=== PATIENT | male | born 1975 | race Caucasian/White ===

== ENCOUNTER 2021-07-04 21:33 | Observation (INO) ==
[2021-07-04] MEDS ORDERED: dilTIAZem HCl 5 MG/ML 5 ML VIAL IV STA ×2 (21:55→22:20)
[2021-07-04 22:10] LABS: Basophils # (auto) 0.03 K/uL (0-0.2); Basophils % (auto) 0.2 %; Eosinophils # (auto) 0.34 K/uL (0-0.5); Eosinophils % (auto) 2.6 %; Immature Granulocytes # (auto) 0.06 K/uL (0.00-0.02); Immature Granulocytes % (auto) 0.5 %; Lymphocytes # (auto) 2.34 K/uL (1.2-3.4); Lymphocytes % (auto) 17.6 %; Mean Corpuscular Hemoglobin 30.9 pg (25-34); Mean Corpuscular Hgb Conc 34.1 g/dL (32-36); Mean Corpuscular Volume 90.5 fL (80-100); Mean Platelet Volume 9.1 fL (7.4-10.4); Monocytes # (auto) 0.98 K/uL (0.11-0.59); Monocytes % (auto) 7.4 %; Neutrophils # (auto) 9.51 K/uL (1.4-6.5); Neutrophils % (auto) 71.7 %; Platelet Count 339 K/uL (130-400); RDW Standard Deviation 46.1 fL (36.4-46.3); Red Blood Count 4.86 M/uL (4.7-6.1); White Blood Count 13.26 K/uL (4.8-10.8)
[2021-07-04 22:20] LABS: D Dimer 460 ug/L FEU (0-500); Partial Thromboplastin Ratio 0.9; Partial Thromboplastin Time 24.5 Seconds (21.0-31.0); Prothrombin Time 11.1 Seconds (9.0-12.0)
[2021-07-04] MEDS ORDERED: STAT IV Infusion **Titration per Protocol STA (22:20)
[2021-07-04 22:27] LABS: Albumin Globulin Ratio 1.6 (0.9-2); Albumin Level 4.6 gm/dl (3.4-5.0); Bilirubin,Total 0.3 mg/dl (0.2-1.0); Calcium 9.4 mg/dl (8.5-10.1); Creatinine Clr Calc Pharmacy 100.6 ml/min; Est GFR (African American) 87.1 ml/min; Est GFR (Non-African American) 75.1 ml/min; Globulin 2.9 gm/dl (2.5-4.0); Magnesium 1.7 mg/dl (1.7-2.4); Potassium 3.9 mmol/L (3.5-5.1); Total Protein 7.5 gm/dl (6.0-8.3)
[2021-07-04] MEDS ORDERED: dilTIAZem HCL 125 MG in DEXTROSE 5% 100 ML IV SCH (22:30)
[2021-07-04 22:37] LABS: Troponin I High Sensitivity 53.7 pg/ml (0-20)
--- NOTE | 2021-07-04 22:42 | Emergency Department Note ---
History of Present Illness General Chief complaint: Tachycardia Stated complaint: Possible overdose Time Seen by Provider: 07/04/21 21:55 History of Present Illness 45-year-old male presents to the ED with a chief complaint of possible overdose. The patient states that he fell asleep while he was working under a car that was not running. EMS was called because the patient was not responding. Narcan was reportedly given and the patient woke up. He was transported here by EMS. He was found to be in A. fib with RVR. Denies recent alcohol use. Denies drug use. Reports a history of hypertension but does not take medication for it. He does not see a doctor regularly. The patient states that it feels like his heart might be going a little fast but he states that he really does not know if it is irregular or fast despite the fact that it was going 140 bpm. Denies any complaints at this time. Past Med/Surg History Medical History (Updated 07/04/21 @ 22:43 by Ross Louis DO) Hypertension Social History Tobacco Type: Cigarettes Feels Safe at Home: Yes Review of Systems A total of 10 systems reviewed and were otherwise negative Physical Exam Vital Signs Vital Signs - 24 hr 07/04/21 21:22 07/04/21 22:11 Temperature 37.3 C Temperature Source Oral Pulse Rate 188 H Pulse Rate [Right] 126 H Pulse Rhythm Irregular Pulse Rhythm [Right] Irregular Pulse Strength Normal Pulse Strength [Right] Normal Respiratory Rate 16 16 Respiratory Effort / Characteristics Non-Labored Spontaneous Non-Labored Spontaneous Respiratory Depth Normal Normal Blood Pressure 180/134 H Blood Pressure [Right Arm] 139/86 Blood Pressure Mean 149 Blood Pressure Mean [Right Arm] 103 Blood Pressure Position [Right Arm] Lying Pulse Oximetry 93 94 Oxygen Delivery Method Nasal Cannula Nasal Cannula Oxygen Flow Rate 4 4 Sepsis Recent Fever Within 48 Hours No Sepsis New/Unexplained Change in Mental Status N/A Sepsis Action Taken by Nursing No Action Required CONSTITUTIONAL/VITAL SIGNS: Reviewed / noted above. GENERAL: Non-toxic in appearance. INTEGUMENTARY: Warm, dry, and [place]. HEAD: Normocephalic. EYES: without scleral icterus or trauma. ENT/OROPHARYNX: clear and moist. LYMPHADENOPATHY/NECK: Is supple without lymphadenopathy or meningismus. RESPIRATORY: Clear to auscultation bilaterally. No increased work of breathing. CARDIOVASCULAR: Regular rate and rhythm. GI/ABDOMEN: Soft and nontender. No organomegaly or pulsatile mass. EXTREMITIES: Warm and well perfused. BACK: No CVA tenderness. NEUROLOGICAL: Intact without focal deficits. PSYCHIATRIC: normal affect. MUSCULOSKELETAL: Normally developed with good muscle tone. TRIAGE NURSING DOCUMENTATION REVIEWED. Course Administered Medications Discontinued Medications Diltiazem HCl (Diltiazem Hcl 5 Mg/Ml 5 Ml Vial) 25 mg IV NOW STA Stop: 07/04/21 21:56 Last Admin: 07/04/21 22:05 Dose: 25 mg Documented by: [id number] Cosigned by: [id number] Diltiazem HCl (Diltiazem Hcl 5 Mg/Ml 5 Ml Vial) 30 mg IV NOW STA Stop: 07/04/21 22:21 Last Admin: 07/04/21 22:29 Dose: 30 mg Documented by: [id number] Cosigned by: [id number] Critical Care Time Critical Care Time: Yes Total Critical Care Time: 30 I have personally spent 30 minutes of critical care time in the direct management of this patient. This includes bedside care, interpretation of diagnostic studies, and testing, discussion with consultants, patient, and family members, and other required patient management activities. This 30 minutes is in excess of all separately billable procedures. Medical Decision Making Differential Diagnosis The differential that was considered includes acute myocardial infarction, acute coronary syndrome, myocarditis, pericarditis, pericardial effusions /tamponade, esophageal perforation, thoracic aortic dissection, pulmonary embolism, pneumonia, pneumothorax, pancreatitis, shingles, acute cholecystitis, perforated abdominal viscus. Medical Records Attestation: I reviewed the patient's medical records. Home Medications Current Medication List: was personally reviewed by me Laboratory Data Attestation: I reviewed the patient's lab results. Result diagrams: 07/04/21 21:56 07/04/21 21:56 Lab Results 07/04/21 07/04/21 07/04/21 Range/Units 21:56 21:56 21:56 WBC 13.26 H (4.8-10.8) K/uL RBC 4.86 (4.7-6.1) M/uL Hgb 15.0 (14.0-18.0) g/dL Hct 44.0 (42-52) % MCV 90.5 (80-100) fL MCH 30.9 (25-34) pg MCHC 34.1 (32-36) g/dL RDW Std Deviation 46.1 (36.4-46.3) fL RDW Coeff of Jorge 14.0 (11.5-14.5) % Plt Count 339 (130-400) K/uL MPV 9.1 (7.4-10.4) fL Immature Gran % (Auto) 0.5 % Neut % (Auto) 71.7 % Lymph % (Auto) 17.6 % Tompkins % (Auto) 7.4 % Eos % (Auto) 2.6 % Baso % (Auto) 0.2 % Neut # (Auto) 9.51 H (1.4-6.5) K/uL Lymph # (Auto) 2.34 (1.2-3.4) K/uL Tompkins # (Auto) 0.98 H (0.11-0.59) K/uL Eos # (Auto) 0.34 (0-0.5) K/uL Baso # (Auto) 0.03 (0-0.2) K/uL Immature Gran # (Auto) 0.06 H (0.00-0.02) K/uL PT 11.1 (9.0-12.0) Seconds INR 1.0 (0.9-1.1) APTT 24.5 (21.0-31.0) Seconds PTT Ratio 0.9 D-Dimer 460 (0-500) ug/L FEU Sodium 138 (136-145) mmol/L Potassium 3.9 (3.5-5.1) mmol/L Chloride 102 (98-107) mmol/L Carbon Dioxide 25 (21-32) mmol/L Anion Gap 11 (3-11) BUN 13 (6-23) mg/dl Creatinine 1.18 (0.6-1.4) mg/dl Est Cr Clr Drug Dosing 100.6 ml/min Est GFR ( Amer) 87.1 ml/min Est GFR (Non-Af Amer) 75.1 ml/min BUN/Creatinine Ratio 11.0 (10-20) Glucose 86 (70-99(Fasting)) mg/dl Calcium 9.4 (8.5-10.1) mg/dl Magnesium 1.7 (1.7-2.4) mg/dl Total Bilirubin 0.3 (0.2-1.0) mg/dl AST 16 (13-39) U/L ALT 14 (7-52) U/L Alkaline Phosphatase 87 (34-104) U/L Troponin I High Sens 53.7 H* (0-20) pg/ml Total Protein 7.5 (6.0-8.3) gm/dl Albumin 4.6 (3.4-5.0) gm/dl Globulin 2.9 (2.5-4.0) gm/dl Albumin/Globulin Ratio 1.6 (0.9-2) TSH (0.300-4.500) uIu/ml 07/04/21 Range/Units 21:56 WBC (4.8-10.8) K/uL RBC (4.7-6.1) M/uL Hgb (14.0-18.0) g/dL Hct (42-52) % MCV (80-100) fL MCH (25-34) pg MCHC (32-36) g/dL RDW Std Deviation (36.4-46.3) fL RDW Coeff of Jorge (11.5-14.5) % Plt Count (130-400) K/uL MPV (7.4-10.4) fL Immature Gran % (Auto) % Neut % (Auto) % Lymph % (Auto) % Tompkins % (Auto) % Eos % (Auto) % Baso % (Auto) % Neut # (Auto) (1.4-6.5) K/uL Lymph # (Auto) (1.2-3.4) K/uL Tom[place]kins # (Auto) (0.11-0.59) K/uL Eos # (Auto) (0-0.5) K/uL Baso # (Auto) (0-0.2) K/uL Immature Gran # (Auto) (0.00-0.02) K/uL PT (9.0-12.0) Seconds INR (0.9-1.1) APTT (21.0-31.0) Seconds PTT Ratio D-Dimer (0-500) ug/L FEU Sodium (136-145) mmol/L Potassium (3.5-5.1) mmol/L Chloride (98-107) mmol/L Carbon Dioxide (21-32) mmol/L Anion Gap (3-11) BUN (6-23) mg/dl Creatinine (0.6-1.4) mg/dl Est Cr Clr Drug Dosing ml/min Est GFR ( Amer) ml/min Est GFR (Non-Af Amer) ml/min BUN/Creatinine Ratio (10-20) Glucose (70-99(Fasting)) mg/dl Calcium (8.5-10.1) mg/dl Magnesium (1.7-2.4) mg/dl Total Bilirubin (0.2-1.0) mg/dl AST (13-39) U/L ALT (7-52) U/L Alkaline Phosphatase (34-104) U/L Troponin I High Sens (0-20) pg/ml Total Protein (6.0-8.3) gm/dl Albumin (3.4-5.0) gm/dl Globulin (2.5-4.0) gm/dl Albumin/Globulin Ratio (0.9-2) TSH 2.805 (0.300-4.500) uIu/ml Imaging Data My Impression: Chest x-ray: Per my interpretation there is no acute disease. No pneumothorax or pneumonia. ECG Data Attestation: I personally reviewed and interpreted this ECG as follows: Additional Comments: Twelve-lead EKG: Per my interpretation shows A. fib at a rate of 170. No ST elevation. No PVCs. Normal QTC. Twelve-lead EKG #2: Per my interpretation shows a normal sinus rhythm at a rate of 90. No ST elevation. No PVCs. Normal QTC. MDM Narrative Patient presents with possible drug overdose. He reportedly was sleeping under someone's car while working on it. Per EMS he was unresponsive and responded to Narcan. He was found to be in A. fib with RVR. Chest x-ray was clear. EKG shows A. fib with a rate of 170. CBC shows an elevation of the white blood cell count. Chemistry panel was unremarkable. D-dimer was negative. A troponin was elevated at 53. TSH was normal. The patient was given IV Cardizem bolus times 2. After the second bolus, the patient's A. fib converted into a normal sinus rhythm. The twelve-lead EKG shows normal sinus rhythm at a rate of 90. No ST elevations. The patient will be seen by the hospitalist for further evaluation and care. Impression & Plan Atrial fibrillation with RVR, Elevated troponin Discharge Plan Visit Data Chief Complaint: Tachycardia Stated Complaint: Possible overdose ED Provider: Ross Louis Discharge Problem: Atrial fibrillation with RVR, Elevated troponin Patient Disposition: Admitted As Inpatient Forms Stand Alone Forms: [facility], [facility] Emergency Department, Important Visit Information Referrals Referrals: PCP,NO [Primary Care Provider] -
--- NOTE | 2021-07-04 23:09 | History & Physical Report ---
Date of Service July 04, 2021 Assessment & Plan (1) Atrial fibrillation with RVR: Plan: Thai Nuñez is a 45yo male with PMHx of HTN (no home meds) who was transported to [facility] ED on 07/04 by EMS for concern of possible overdose and for tachycardia - found to be in a-fib with RVR on arrival in ED. Atrial Fibrillation with Rapid Ventricular Response, resolved Reverted to NSR at ~80bpm after total of Diltiazem 55mg IV in the ED. Patient does report previous episodes of palpitations. Unclear cause of a-fib RVR although given that patient was initially unresponsive in the field and woke up after Narcan, high suspicion for overdose possibly due to opiate. Patient vehemently denies drug use. - hold on further rate control for now as patient is in NSR - please contact provider for sustained HR >110 - CHADS-VASc score of 1 - will hold on anti-coagulation for now; defer to day team vs PCP on further discussion regarding this - UDS ordered and pending Elevated Troponin hsTroponin 53.7 at ~10pm. No chest pain or ST/T changes on EKG. Suspect demand ischemia in context of a-fib RVR. - trend now and in AM - PRN EKG + Nitro for chest pain HTN Reportedly has h/o this but not treated with medications. BP 180/134 on arrival but improved to 139/86 s/p Diltiazem. - trend BP closely while admitted - defer to day team for decision about chronic anti-hypertensives FEN/GI: regular diet DVT Prophylaxis: Lovenox Code Status: full code Disposition: med/tele (2) Elevated troponin: (3) Hypertension: History of Present Illness Chief Complaint: tachycardia Primary Care Provider: NO PCP Thai Nuñez is a 45yo male with PMHx of HTN (no home meds) who was transported to [facility] ED on 07/04 by EMS for concern of possible overdose and for tachycardia. Patient reports that he fell asleep while working under a car that was not running. EMS was called because patient was not responding; Narcan was reportedly given and patient woke up. He reports that when he woke up his heart rate felt fast but denies chest pain, headache, SOB, or any other symptoms. Does report that he has had palpitations/tachycardia several times in the past but usually it resolved within 5-10 minutes without intervention and he has never had HR measured before or had EKG before. Patient denies alcohol use or drug use. Does report 1pack per day smoking x15 years - current smoker. Presented to ED in a-fib with RVR at 188bpm. BP was also elevated at 180/134 and patient was satting 93-94% on 4L/min NC. Labs significant for troponin 53.7. WBC 13.26 (neutrophilic predominance and mild L shift). D-dimer negative. TSH 2.805. CXR without acute cardiopulmonary process. Patient was given Diltiazem 25mg IV x1 followed by 30mg IV x1 - subsequently converted to NSR at ~80bpm and BP improved to 139/86. Patient was also weaned to room air and is breathing comfortably. Allergies Allergy/AdvReac Type Severity Reaction Status Date / Time No Known Allergies Allergy Unverified 07/05/21 01:17 Home Medications Medication Instructions Recorded Confirmed Type Heart Burn Pill 1 tab PO .LAST NIGHT 07/05/21 07/05/21 History diltiazem HCl 120 mg 120 mg PO DAILY #30 cap 07/05/21 Rx capsule,extended release 24 hr ibuprofen 200 mg tablet 400 mg PO Q6H PRN 07/05/21 07/05/21 History Past Med/Surg History Medical History (Updated 07/05/21 @ 13:59 by Aman Thorne MD) Hypertension Social History Smoking Status: Current every day smoker Tobacco Type: Cigarettes Cigarettes Per Day: 20; Second Hand Exposure: No; Hx Alcohol Use: No Hx Substance Use: No (Patient states he does not use any substances) Preferred Language: Bengali Communication Ability: Effective Director [employer] Required: No Beliefs That Will Affect Care: None Current Living Situation: Alone Feels Safe at Home: Yes Assistive Devices: None Review of Systems Review of Systems: All systems reviewed & are unremarkable except as noted in HPI & below Physical Exam Physical Exam: General: A&Ox3. NAD. Cooperative. HEENT: Atraumatic, normocephalic. Pulm: CTAB A&P. -wheezes, -rales, -rhonchi. Symmetrical chest rise. No increase work of breathing. No respiratory distress. Cardiac: RRR, -mrg. Radial pulses intact and symmetrical. Abdominal: soft, non-tender, non-distended, BS x 4 Skin: warm, dry, no rash Results & Data Results & Data ([facility]) Vital Signs (Past 12 Hours) Vital Signs Temp Pulse Pulse Resp BP BP Pulse Ox 07/04/21 22:11 126 H 16 139/86 94 07/04/21 21:22 37.3 C 188 H 16 180/134 H 93 Supervising Physician Co-Signing Physician Notes Attending addendum: I have physically seen this patient, have supervised the medical residents activities, and agree with the H&P unless as otherwise noted. Assessment and Plan: Unresponsive episode- Reportedly woke up after Narcan Urine drug screen ordered and pending Patient denies use of narcotics Will be admitted to monitored bed monitor for further arrhythmias Atrial fibrillation with RVR/increased troponin/hypertension- The patient will be admitted to telemetry for serial cardiac enzymes, serial EKG's, cardiac rhythm monitoring and a 2-D echocardiogram with Dopplers. Troponin 53.7 Has converted to normal sinus rhythm in the emergency department atus post diltiazem 25 mg IV then 30 mg IV pushes Consult cardiology Remaining orders and notations as noted Resident Activity Tracking Resident Involvement: Resident Care Provided Care Provided: Adult Hospital Medicine
[2021-07-05] MEDS ORDERED: ACETAMINOPHEN 325 MG TAB PO PRN (01:53)
[2021-07-05] MEDS ORDERED: NITROGLYCERIN SL 0.4 MG/TAB TAB SL PRN (01:53)
[2021-07-05] MEDS ORDERED: Heparin IV Adult Wt-Based Standard WITH Bolus Protocol IV SCH (03:35)
[2021-07-05] MEDS ORDERED: HEPARIN SODIUM/DEXTROSE 25,000 UNITS/500 ML BAG IV SCH (04:00)
[2021-07-05] MEDS ORDERED: HEPARIN SOD (PORCINE) 1000 UNIT/ML IV ONE (04:15)
[2021-07-05 04:36] LABS: Hematocrit (blood only) 41.5 % (42-52); Hemoglobin 13.9 g/dL (14.0-18.0); Mean Corpuscular Hemoglobin 30.5 pg (25-34); Mean Corpuscular Volume 91.2 fL (80-100); Mean Platelet Volume 9.1 fL (7.4-10.4); Platelet Count 321 K/uL (130-400); RDW Coefficient of Variation 14.1 % (11.5-14.5); RDW Standard Deviation 46.9 fL (36.4-46.3); Red Blood Count 4.55 M/uL (4.7-6.1); White Blood Count 10.64 K/uL (4.8-10.8)
[2021-07-05 04:39] LABS: Mean Corpuscular Hgb Conc 33.5 g/dL (32-36)
[2021-07-05 04:46] LABS: INR 1.1 (0.9-1.1); Partial Thromboplastin Time 26.2 Seconds (21.0-31.0); Prothrombin Time 11.2 Seconds (9.0-12.0)
[2021-07-05 04:53] LABS: Basophils # (auto) 0.03 K/uL (0-0.2); Basophils % (auto) 0.3 %; Eosinophils # (auto) 0.32 K/uL (0-0.5); Immature Granulocytes # (auto) 0.02 K/uL (0.00-0.02); Immature Granulocytes % (auto) 0.2 %; Lymphocytes # (auto) 3.84 K/uL (1.2-3.4); Lymphocytes % (auto) 36.1 %; Monocytes # (auto) 1.31 K/uL (0.11-0.59); Monocytes % (auto) 12.3 %; Neutrophils # (auto) 5.12 K/uL (1.4-6.5); Neutrophils % (auto) 48.1 %
[2021-07-05 04:58] LABS: BUN Creatinine Ratio 12.1 (10-20); Calcium 8.8 mg/dl (8.5-10.1); Creatinine Clr Calc Pharmacy 118.9 ml/min; Est GFR (African American) 107.7 ml/min; Est GFR (Non-African American) 92.9 ml/min; Magnesium 1.7 mg/dl (1.7-2.4); Potassium 3.9 mmol/L (3.5-5.1)
[2021-07-05] MEDS ORDERED: METOPROLOL TARTRATE 25 MG TAB PO STA (07:31)
--- NOTE | 2021-07-05 07:37 | Hospitalist Progress Note ---
Date of Service July 05, 2021 Assessment & Plan (1) Atrial fibrillation with RVR: Plan: Thai Nuñez is a 45yo male with PMHx of HTN (no home meds) who was transported to [facility] ED on 07/04 by EMS for concern of possible overdose and for tachycardia - found to be in a-fib with RVR on arrival in ED. Atrial Fibrillation with Rapid Ventricular Response, resolved Reverted to NSR at ~80bpm after total of Diltiazem 55mg IV in the ED. Patient does report previous episodes of palpitations. Unclear cause of a-fib RVR although given that patient was initially unresponsive in the field and woke up after Narcan, high suspicion for overdose possibly due to opiate. Patient vehemently denies drug use. - hold on further rate control for now as patient is in NSR - please contact provider for sustained HR >110 - CHADS-VASc score of 1 - will hold on anti-coagulation for now; defer to day team vs PCP on further discussion regarding this - UDS ordered and pending Elevated Troponin hsTroponin 53.7 at ~10pm. No chest pain or ST/T changes on EKG. Suspect demand ischemia in context of a-fib RVR. - trend now and in AM - PRN EKG + Nitro for chest pain HTN Reportedly has h/o this but not treated with medications. BP 180/134 on arrival but improved to 139/86 s/p Diltiazem. - trend BP closely while admitted - defer to day team for decision about chronic anti-hypertensives FEN/GI: regular diet DVT Prophylaxis: Lovenox Code Status: full code Disposition: med/tele (2) Elevated troponin: (3) Hypertension: Admission and Anticipated Discharge Date Admission Date: July 04, 2021 Subjective No complaints this AM. Denies any symptoms other than mild back pain. Per nursing, had been unable to give urine sample; awaiting utox. 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 This occurred just after standing-> crawl under cr during while he felt a few seconds of dizziness and blood rushing to head. Denies hx of syncope or seizure. Denies substance use prior. States will attempt to give urine sample. May have had hx of possible afib in past. Review of Systems Review of Systems: All systems reviewed & are unremarkable except as noted in HPI & below Physical Exam Physical Exam: General: Grossly A&O. NAD. Cooperative. Conversational. No confusion. HEENT: Atraumatic, normocephalic. EOMI Pulm: Faint coarse crackles on inspiration at bases. Faint brief exp wheezes at bases. No respiratory distress. Cardiac: RRR, -mrg. Radial pulses intact and symmetrical. Abdominal: Nontender, nondistended, soft. Neuro: Strength and sensation of extremities intact. Results & Data Results & Data ([facility]) Vital Signs (Past 12 Hours) Vital Signs Temp Pulse Pulse Resp BP BP BP 07/05/21 06:45 36.7 C 87 18 139/87 07/05/21 04:04 91 H 07/05/21 02:18 36.7 C 87 14 151/95 H 07/05/21 02:10 36.7 C 87 14 151/95 H 07/05/21 00:11 80 16 136/84 07/04/21 22:11 126 H 16 139/86 07/04/21 21:22 37.3 C 188 H 16 180/134 H Pulse Ox 07/05/21 06:45 90 07/05/21 04:04 07/05/21 02:18 95 07/05/21 02:10 95 07/05/21 00:11 92 07/04/21 22:11 94 07/04/21 21:22 93 Resident Activity Tracking Resident Involvement: Resident Care Provided Care Provided: Adult Hospital Medicine
--- NOTE | 2021-07-05 07:56 | XRay Report ---
XR chest 1V portable HISTORY: Dysrhythmia COMPARISON: None. FINDINGS: The heart is mildly enlarged. There is mild central pulmonary vascular congestion without o vert edema. No pleural effusions. No pneumothorax. Cervical spinal fusion hardware is noted. IMPRESSION: Cardiomegaly with mild congestive change. ACT 112: Negative or not required by law. Electronically signed by: Lele Leahy M.D. 07/05/2021 7:55 AM
[2021-07-05] MEDS ORDERED: ENOXAPARIN INJ 40 MG/0.4 ML SYR SQ SCH (09:00)
[2021-07-05 11:35] LABS: Partial Thromboplastin Ratio 2.1
[2021-07-05 11:40] LABS: Partial Thromboplastin Time 58.7 Seconds (21.0-31.0)
--- NOTE | 2021-07-05 12:14 | Discharge Summary ---
Date of Service July 05, 2021 Admission HPI Per Admitting Provider Thai Nuñez is a 45yo male with PMHx of HTN (no home meds) who was transported to [facility] ED on 07/04 by EMS for concern of possible overdose and for tachycardia. Patient reports that he fell asleep while working under a car that was not running. EMS was called because patient was not responding; Narcan was reportedly given and patient woke up. He reports that when he woke up his heart rate felt fast but denies chest pain, headache, SOB, or any other symptoms. Does report that he has had palpitations/tachycardia several times in the past but usually it resolved within 5-10 minutes without intervention and he has never had HR measured before or had EKG before. Patient denies alcohol use or drug use. Does report 1pack per day smoking x15 years - current smoker. Presented to ED in a-fib with RVR at 188bpm. BP was also elevated at 180/134 and patient was satting 93-94% on 4L/min NC. Labs significant for troponin 53.7. WBC 13.26 (neutrophilic predominance and mild L shift). D-dimer negative. TSH 2.805. CXR without acute cardiopulmonary process. Patient was given Diltiazem 25mg IV x1 followed by 30mg IV x1 - subsequently converted to NSR at ~80bpm and BP improved to 139/86. Patient was also weaned to room air and is breathing comfortably. Admission Exam Per Admitting Provider General: A&Ox3. NAD. Cooperative. HEENT: Atraumatic, normocephalic. Pulm: CTAB A&P. -wheezes, -rales, -rhonchi. Symmetrical chest rise. No increase work of breathing. No respiratory distress. Cardiac: RRR, -mrg. Radial pulses intact and symmetrical. Abdominal: soft, non-tender, non-distended, BS x 4 Skin: warm, dry, no rash Principal Diagnosis atrial fibrillation, syncope Discharge Exam General: Grossly A&O. NAD. Cooperative. Conversational. No confusion. HEENT: Atraumatic, normocephalic. EOMI Pulm: Faint coarse crackles on inspiration at bases. Faint brief exp wheezes at bases. No respiratory distress. Cardiac: RRR, -mrg. Radial pulses intact and symmetrical. Abdominal: Nontender, nondistended, soft. Neuro: Strength and sensation of extremities intact. Discharge Data Allergies Allergy/AdvReac Type Severity Reaction Status Date / Time No Known Allergies Allergy Unverified 07/05/21 01:17 Consultations 07/04/21 22:57 ED Decision to Admit Stat 07/05/21 03:32 Consult Cardiology Routine Ordered Studies Cardiac Enzymes 07/04/21 07/05/21 07/05/21 Range/Units 21:56 01:57 08:33 AST 16 (13-39) U/L Troponin I High Sens 53.7 H* 519.8 H* D 513.5 H* (0-20) pg/ml Coagulation 07/04/21 07/05/21 07/05/21 Range/Units 21:56 04:11 10:53 PT 11.1 11.2 (9.0-12.0) Seconds APTT 24.5 26.2 58.7 H* (21.0-31.0) Seconds CBC 07/04/21 07/05/21 Range/Units 21:56 04:11 WBC 13.26 H 10.64 (4.8-10.8) K/uL RBC 4.86 4.55 L (4.7-6.1) M/uL Hgb 15.0 13.9 L (14.0-18.0) g/dL Hct 44.0 41.5 L (42-52) % Plt Count 339 321 (130-400) K/uL Neut # (Auto) 9.51 H 5.12 (1.4-6.5) K/uL Lymph # (Auto) 2.34 3.84 H (1.2-3.4) K/uL [place] # (Auto) 0.98 H 1.31 H (0.11-0.59) K/uL Eos # (Auto) 0.34 0.32 (0-0.5) K/uL Baso # (Auto) 0.03 0.03 (0-0.2) K/uL Comprehensive Metabolic Panel 07/04/21 07/05/21 Range/Units 21:56 04:11 Sodium 138 138 (136-145) mmol/L Potassium 3.9 3.9 (3.5-5.1) mmol/L Chloride 102 104 (98-107) mmol/L Carbon Dioxide 25 29 (21-32) mmol/L BUN 13 12 (6-23) mg/dl Creatinine 1.18 0.99 (0.6-1.4) mg/dl Glucose 86 94 (70-99(Fasting)) mg/dl Calcium 9.4 8.8 (8.5-10.1) mg/dl AST 16 (13-39) U/L ALT 14 (7-52) U/L Alkaline Phosphatase 87 (34-104) U/L Total Protein 7.5 (6.0-8.3) gm/dl Albumin 4.6 (3.4-5.0) gm/dl Intake and Output 07/05/21 07/05/21 07/05/21 06:59 14:59 22:59 Intake Total 350 / 350 Output Total 450 / 450 Balance -100 / -100 Intake: Oral 350 / 350 Output: Urine 450 / 450 Other: Other Intake Source npo Weight 109 kg 109 kg Weight Measurement Method Standing Scale Patient Weight 07/06/21 06:59 Weight 109 kg Chest X-Ray 07/04/21 21:56 XR chest 1V portable HISTORY: Dysrhythmia COMPARISON: None. FINDINGS: The heart is mildly enlarged. There is mild central pulmonary vascular congestion without overt edema. No pleural effusions. No pneumothorax. Cervical spinal fusion hardware is noted. IMPRESSION: Cardiomegaly with mild congestive change. ACT 112: Negative or not required by law. Electronically signed by: Lele Leahy M.D. 07/05/2021 7:55 AM Hospital Course (1) Atrial fibrillation with RVR: Thai Nuñez is a 45yo male with PMHx of HTN (no home meds) and possible parox afib who presented after being found unresponsive in a parklot (working under a car) and was noted to be in afib rvr. Syncope -was transported to [facility] ED on 07/04 by EMS for concern of possible overdose and for tachycardia; pateient woke up after Narcan -per interview w/ patient, denies any opiate or any substance use (other than tobacco); patient describes syncopal-type episode w/ preceding dizziness and head fullness upon transfer from standing position to crawling under car for quick repair -cardiac work in the hospital was reassuring -did consider substance use as differential that patient may not be disclosing; counseled patient on concerns as would influence treatment plan (we are prescribing diltiazem for afib). - UDS pos for cocaine metabolite, confirmation test pending Atrial Fibrillation with Rapid Ventricular Response, resolved Reverted to NSR at ~80bpm after total of Diltiazem 55mg IV in the ED. Patient does report previous episodes of palpitations. Unclear cause of a-fib RVR although given that patient was initially unresponsive in the field and woke up after Narcan, high suspicion for overdose possibly due to opiate. New outpatient medication: diltiazem 120mg daily. Outpt f/u w/ cardiology in 2-4 wks, along w/ stress test (either stress ecg or stress echo) Echo w/ EF 55-60 and grade 2 diastolic dysfunction. moderate concentric LVH. - CHADS-VASc score of 1 - defer anticoagulation - outpatient f/u: sleep study Elevated hs Troponin, peaked 500s, likely 2/2 demand ischemia from tachycardia HTN Reportedly has h/o this but not treated with medications. BP 180/134 on arrival but improved to 139/86 s/p Diltiazem. F/u as outpatient to assess if chronic regimen indicated. Patient was full code this admission Does not have PCP; referral placed. (2) Elevated troponin: (3) Hypertension: (4) Paroxysmal atrial fibrillation: Total Time Total Time Spent Total Time Spent (In Minutes): <30 Discharge Plan Discharge Items Patient Disposition: Home - Self-Care Reason For Visit: TACHYCARDIA Discharge Diagnosis: atrial fibrillation, syncope Activity: Per Instructions section Non-emergency contact: Primary Care Provider Call non-emergency contact if: you have any medication questions and you have a fever Follow-up/Referrals: Gilbert Cain MD [Physician] - (f/u in office in 2-4 weeks along w/ stress test) Aman Thorne MD [Resident] - (hospital discharge follow up within 1 week ) PCP,NO [Primary Care Provider] - (see pcp referral (Aman Thorne MD at [facility])) Diet: Regular Addtl Attending Provider Instructions: You were admitted to [facility] after being found unresponsive. The workup was reassuring.You also had atrial fibrillation which is an irregular heart rhythm where the heart beats too quickly. You were treated with IV medication and your heart rhythm returned to normal. You will be prescribed a medication called diltiazem extended release 120mg once a day (start first dose this this evening; take every 24 hours) to reduce the recurrence of the atrial fibrillation. The prescription has been sent to [facility] in [place]. Please make an appointment to follow up and establish with a primary care doctor within 1 week of hospital discharge. An appointment will be requested for f/u with me at the [address] [place] [address]. If you do not hear back in a few days, call [phone] to make an appointment. Please also follow up with cardiology in 2-4 weeks for an office visit and str ess test (to check the heart's function). If you develop any new or worsening symptoms including fever, chills, sweats, chest pain, chest pressure, difficulty breathing, uncontrolled nausea/vomiting, rash, wheezing, passing out or nearly passing out, bleeding, black/bloody bowel movements, or other new or concerning symptoms please call your primary care physician, or call 911 for re-evaluation in the emergency department if you are very concerned. If you pass out again, please contact your doctor and/or visit the emergency department. Pending Studies at Discharge: No Stand-Alone Forms: My [facility], Smoking Cessation Medications and DC Order Prescriptions: New diltiazem HCl 120 mg capsule,extended release 24hr 120 mg PO DAILY Qty: 30 RF: 1 Continued ibuprofen 200 mg Tablet 400 mg PO Q6H PRN (Reason: Pain) RF: 0 Heart Burn Pill 1 tab PO .LAST NIGHT RF: 0 Discharge Orders: Discharge Order (Routine); Ordered 07/05/21 Ordered By: Aman Thorne Admission Data Admit Date/Time: 07/04/21 23:35 Attending Provider: Hardik Luciano Admit Provider: Jeff Samayoa Primary Care Provider: PCP,NO Other Providers: Carroll Smith ; Gilbert Cain Other Interventions: Discharge Summary Assessment (RN) Last Done: 07/05/21 13:13 Supervising Physician Co-Signing Physician Notes I personally examined the patient and verified all fernandez points of history and exam, discussed case, and agree with decision making with Dr Thorne feeling better and feels up to going home. discussed working dx and plans and pt expressed good understanding. answered all questions to the best of my ability vitals noted nad heent nc at mmm breathing unlabored no accessory muscles good effort skin no rashes no pallor or icterus new afib -now nsr -home on dilt -chads vasc 1 - holding off on anticoagulation for now, likely to need over time as risks accumulate -echo noted -for sleep study -cardiology and PCP f/u -stable for home Resident Activity Tracking Resident Involvement: Resident Care Provided Care Provided: Adult Hospital Medicine
--- NOTE | 2021-07-05 12:55 | XCELERA ---
[id number] \\[id number]
--- NOTE | 2021-07-05 12:55 | Cardiology Consultation ---
Date of Consultation July 05, 2021 Assessment & Plan (1) Atrial fibrillation with RVR: (2) Elevated troponin: (3) Hypertension: (4) Uncontrolled daytime somnolence: (5) Mild aortic regurgitation: Patient with unexplained uncontrolled daytime somnolence, possibilities include opioid use (denied), narcolepsy, or marked sleep apnea (which he has been told he should be evaluated for). If he did have sleep apnea this would be an adrenergic impulse that could have precipitated his atrial fibrillation, in turn this likely caused the troponin elevation through supply/demand mismatch due to his extreme ventricular rate (170 bpm) in the context of moderate LVH. Denies chest pain at any time and there were no ischemic ECG changes or echocardiographic wall motion abnormalities, thus suspicion for obstructive coronary artery disease is fairly low. Nonetheless, would be prudent to have him obtain a stress study (exercise treadmill test or stress echocardiogram) as an outpatient in the future. Since he does have significant LVH, suggesting uncontrolled hypertension, he might best benefit from diltiazem for this as well as to prevent/manage atrial fibrillation. Since his BP is not elevated currently, would recommend only low- dose diltiazem (120 mg long-acting agent daily). As a young active person, he likely would tolerate a calcium channel yaquelin better than a beta-yaquelin. His [id number] score is 1 (HTN), could consider chronic anticoagulation but given potentially avoidable precipitant (sleep apnea type phenomenon) as well as his potential for falls/inattention due to somnolence, reasonable to forego anticoagulation in the absence of evidence for recurring atrial fibrillation. No further need for heparin currently (discontinue) since he is back in sinus rhythm. If he remains asymptomatic on ambulating the hallways and telemetry remains benign, could be discharged home with follow-up cardiology office visit and stress test to be arranged within 2 to 4 weeks. History of Present Illness Reason for Consultation: Elevated troponin, A. fib/RVR Requesting Physician: Hardik Luciano DO Attending Physician: Hardik Luciano DO History of Present Illness 45-year-old man with history of hypertension, no cardiac history, who fell asleep while working under a car that was not running, prompting EMS evaluation during which she was noted to have atrial fibrillation with rapid ventricular response. Etiology of his unresponsive episode is uncertain, he was given Narcan but he denies any opioid use. He was told in the past that he likely has sleep apnea. No known history of narcolepsy. In the emergency department he was given IV diltiazem and his rhythm returned to sinus. He denies chest pain at any time and notes no dyspnea or other cardiac complaints. He did note tachypalpitations at the time of the atrial fibrillation with no associated symptoms. At the time my evaluation today, he was quite somnolent and kept falling asleep but was easily awakened and denied any somatic complaints whatsoever. Allergies Allergy/AdvReac Type Severity Reaction Status Date / Time No Known Allergies Allergy Unverified 07/05/21 01:17 Home Medications Medication Instructions Recorded Confirmed Type Heart Burn Pill 1 tab PO .LAST NIGHT 07/05/21 07/05/21 History ibuprofen 200 mg tablet 400 mg PO Q6H PRN 07/05/21 07/05/21 History Patient History Medical History (Updated 07/05/21 @ 13:09 by Gilbert Cain MD) Hypertension Social History Smoking Status: Current every day smoker Tobacco Type: Cigarettes Cigarettes Per Day: 20; Second Hand Exposure: No; Do You Dip or Chew Tobacco: No; Hx Alcohol Use: No Hx Substance Use: No (Patient states he does not use any substances) Preferred Language: Croatian Communication Ability: Effective Imaging Administrator Required: No Beliefs That Will Affect Care: None Current Living Situation: Alone Feels Safe at Home: Yes Safety Concerns: Feels Safe At This Time Assistive Devices: None Physical Exam Physical Exam: As noted, patient was quite somnolent but easily arousable. Skin: Has a purplish anterior chest wall birthmark, no ecchymoses or generalized lesions. HEENT: Pupils were somewhat miotic, otherwise unremarkable. Neck: no JVD or carotid bruits. Lungs: clear. Cardiac: regular rhythm, no murmur or gallop. Abdomen: benign. Extremities: no edema, pulses intact. Neurologic: normal affect, somnolent, nonfocal. Results & Data ([facility]) Vital Signs (Past 12 Hours) Vital Signs Temp Pulse Pulse Resp BP Pulse Ox 07/05/21 10:50 98.8 F 73 18 108/73 98 07/05/21 08:00 83 07/05/21 06:45 98.1 F 87 18 139/87 90 07/05/21 04:04 91 H 07/05/21 02:18 98.1 F 87 14 151/95 H 95 07/05/21 02:10 98.1 F 87 14 151/95 H 95 Laboratory Results Troponin increased from 50 range to 500 and then leveled out. Hemoglobin 13.9 with normal white count and platelet count. Normal electrolytes including potassium of 3.9 and magnesium of 1.7. COVID test was negative. Diagnostic Findings Initial ECG showed atrial fibrillation with rapid ventricular sponsor 170 bpm, no significant ST abnormalities. Repeat ECG showed motion artifact, sinus rhythm at [address] segments and normal T waves. Echocardiogram showed EF 55 to 60% with moderate LVH and diastolic dysfunction, mild aortic regurgitation with normal aortic root. Chest x-ray showed cardiomegaly with mild congestive change. PG Care Time/CCT Total # of Minutes Spent Total Time Spent with Patient: Total time spent is greater than 50% in coordination of care (as documented) at patient's floor/unit and/or counseling patient: Coding Level of Care Code 35334 Inpt Consult Level 4 Diagnoses Atrial fibrillation with RVR I48.91 Elevated troponin R77.8 Hypertension I10 Uncontrolled daytime somnolence R40.0 Mild aortic regurgitation I35.1
--- NOTE | 2021-07-05 13:51 | Electrocardiogram Report ---
Test Reason : Blood Pressure : / mmHG Vent. Rate : 170 BPM Atrial Rate : 170 BPM P-R Int : 000 ms QRS Dur : 078 ms QT Int : 300 ms P-R-T Axes : 000 027 -34 degrees QTc Int : 504 ms Atrial fibrillation with rapid ventricular response Abnormal ECG No previous ECGs available Confirmed by Gilbert Cain ([id number]) on 07/05/2021 1:50:56 PM Referred By: REFERRED SELF Confirmed By:Gilbert Cain
[2021-07-05 14:12] LABS: Amphetamines+Metham, Urine Pos (Neg); Barbiturates, Urine Neg (Neg); Benzodiazepine, Urine Neg (Neg); Cocaine, Urine Pos (Neg); MDMA (Ecstacy), Urine Pos (Neg); Methadone, Urine Neg (Neg); Opiate, Urine Neg (Neg); Phencyclidine, Urine Neg (Neg)
--- NOTE | 2021-07-05 14:42 | Electrocardiogram Report ---
Test Reason : Blood Pressure : / mmHG Vent. Rate : 077 BPM Atrial Rate : 077 BPM P-R Int : 124 ms QRS Dur : 096 ms QT Int : 400 ms P-R-T Axes : 029 006 027 degrees QTc Int : 452 ms Normal sinus rhythm Normal ECG When compared with ECG of 04-JUL-2021 23:09, No significant change was found Confirmed by Gilbert Cain ([id number]) on 07/05/2021 2:42:27 PM Referred By: REFERRED SELF Confirmed By:Gilbert Cain
--- NOTE | 2021-07-05 14:45 | Electrocardiogram Report ---
Test Reason : Blood Pressure : / mmHG Vent. Rate : 090 BPM Atrial Rate : 090 BPM P-R Int : 130 ms QRS Dur : 094 ms QT Int : 392 ms P-R-T Axes : 036 012 022 degrees QTc Int : 479 ms Normal sinus rhythm Normal ECG When compared with ECG of 04-JUL-2021 21:43, Sinus rhythm has replaced Atrial fibrillation Vent. rate has decreased BY 80 BPM Confirmed by Gilbert Cain ([id number]) on 07/05/2021 2:45:43 PM Referred By: REFERRED SELF Confirmed By:Gilbert Cain
--- NOTE | 2021-07-05 17:48 | Billing Data ---
Date of Service July 05, 2021 Coding Level of Care Code 85667 OBS Care - Discharge
--- NOTE | 2021-07-05 22:48 | Billing Data ---
Date of Service July 05, 2021 Coding Level of Care Code INT OBSERVATION CARE 70M LVL 3
== END 2021-07-05 14:34 | disposition home or self-care (01) ==
LOC: ED 21:33 → 2N 21:33 → SUATTDRO 23:35 → 2N 07-05 01:59